=== PATIENT | female | born 2000 | race Caucasian/White ===

== ENCOUNTER 2024-11-23 08:44 | Emergency (ER) | payer BC, SELFPAY ==
[2024-11-23 08:51] VITALS: BP 103/74; PULSE 63; RESP 16; TEMP 36.1; O2SAT 100
--- NOTE | 2024-11-23 09:08 | ED.URI ---
HPI - URI/Sore Throat General Chief Complaint: Upper Respiratory Infection Stated Complaint: Sinus Time Seen by Provider: 11/23/24 09:08 Source: patient, RN notes reviewed and old records reviewed Mode of arrival: ambulatory Limitations: no limitations History of Present Illness HPI Narrative: 24-year-old female presents to the [facility] with complaints of sinus pressure x3 days, bilateral ear pressure worse on left than the right. Also has a sore inside the left cheek. Has taken 1 dose of ibuprofen and a dose of Mucinex. Denies any fevers. Onset (ago): day(s) (3) Treatments prior to arrival: cold medicine Related Data Home Medications ?Medication ?Instructions ?Recorded ?Confirmed ?Last Taken ?Type Control Pills 03/13/19 Unknown History Allergies Allergy/AdvReac Type Severity Reaction Status Date / Time No Known Allergies Allergy Mild Verified 11/23/24 08:56 Review of Systems Review of Systems: All systems reviewed & are unremarkable except as noted in HPI and below Constitutional: Constitutional: Reports no additional constitutional complaints ENT: Reports as per HPI Cardiovascular: Cardiovascular: Reports no additional cardiovascular complaints, Denies chest pain and Denies dyspnea Respiratory: Respiratory: Reports no additional respiratory complaints, Denies chest congestion, Denies cough and Denies dyspnea Musculoskeletal: Musculoskeletal: Reports no additional musculoskeletal complaints Integumentary/Breasts: Skin/Breast: Reports system reviewed and no additional complaints, except as docu PMFSH Comments At the time of my signature, I reviewed and agree with the nursing past medical, surgical, social, and family history. There is no relevant family history pertinent to the patient complaint. Exam Const: General: cooperative, healthy appearing, comfortable, no acute distress, well developed, alert and well nourished Nutritional Appearance: well nourished Orientation/consciousness: patient oriented x3 Limitations: no limitations HENMT: Head: normal to inspection Ears: hearing grossly normal bilaterally, external ears normal, TM's normal bilaterally, EAC's normal, mastoids normal and no periauricular adenopathy Mouth: Yes lip normal, Yes tongue normal, Yes moist mucous membranes and Yes other (Ulceration left cheek posterior) Throat: posterior oropharynx normal, uvula midline and no uvular edema Eyes: General: appearance normal, both eyes and all related structures Alignment and Position: alignment normal Neck: Neck: normal visual inspection, full ROM, no lymphadenopathy and no meningeal signs Chest: Chest palpation & inspection: normal inspection of the chest Resp: Effort & Inspection: normal respiratory effort and able to speak in complete sentences Auscultation: clear to auscultation bilaterally, no crackles, no rales, no rhonchi and no wheezes Cardio: Rate: regular rate Skin: General skin exam: normal color and no rashes or lesions noted Neuro: General: patient oriented x3, gait normal, moves all extremities and no meningeal signs Cognition (Neuro): normal cognition Speech: normal speech Gait exam (Neuro): Normal gait present Extrem: General: normal to inspection, full ROM, capillary refill normal and normal gait Psych: Appearance: grossly normal and well kempt Mental Status: mental status grossly normal Speech and movement: Normal speech and movement present and Clear speech present Affect: normal affect Attitude: cooperative Course Course Level of Care: Express Care Visit Vital Signs Vital signs: Vital Signs Temperature 97.0 F L 11/23/24 08:51 Pulse Rate 63 11/23/24 08:51 Respiratory Rate 16 11/23/24 08:51 Blood Pressure 103/74 11/23/24 08:51 Pulse Oximetry 100 11/23/24 08:51 Oxygen Delivery Room Air 11/23/24 08:51 Temperature 97.0 F L 11/23/24 08:51 Pulse Rate 63 11/23/24 08:51 Respiratory Rate 16 11/23/24 08:51 Blood Pressure 103/74 11/23/24 08:51 Pulse Oximetry 100 11/23/24 08:51 Oxygen Delivery Room Air 11/23/24 08:51 Reviewed MDM - URI/Sore Throat MDM Narrative Medical decision making narrative: Patient sitting comfortably in exam. Patient is nontoxic, vitals stable. Patient presents 3 day history of sinus pressure, ear pressure. Has not this ulcer to the left inside cheek posterior. No acute findings noted on exam. Patient is appropriate for outpatient treatment with close follow-up Discharge instructions reviewed with patient, as well as provided in writing per nursing staff. The instructions also include specific and strict return/GO TO THE ER as well as f/u information. All questions have been answered, and the patient deny any further questions with discharge and discharge plan. Some parts of this dictation were generated by voice recognition software and may contain typographical and/or grammatical inaccuracies. Differential Diagnosis Differential diagnosis: Likely upper respiratory infection, otitis media, sinusitis, viral infection, bronchitis, influenza and pharyngitis Critical Care Time Critical Care Time Critical Care Time: No Discharge Plan Discharge Clinical Impression: Aphthous ulcer of mouth Upper respiratory infection Qualifiers: URI type: unspecified viral URI Qualified Code(s): J06.9 - Acute upper respiratory infection, unspecified Sinusitis Qualifiers: Sinusitis location: pansinusitis Chronicity: acute Recurrence: not specified as recurrent Qualified Code(s): J01.40 - Acute pansinusitis, unspecified Patient Disposition: Home Condition: Stable Instructions: Sinusitis (ED), Viral Syndrome (ED) Additional Instructions: For the canker sore you can do saltwater gargles, apply sparingly the triamcinolone in orabase Your symptoms are likely due to a viral illness, which is not treated with antibiotics. Typically viral infections last 7-10 days, can linger for couple of weeks. It is very important to treat your symptoms. Drink plenty of water, Gatorade, Pedialyte, ice pops or Jell-O. -Alternate Tylenol and Motrin per package directions for fever or pain. You can alternate every 4 hours -Antihistamine medication such as Zyrtec/Claritin/Socorro during the day can help improve symptoms. -doing daily nasal irrigations can help relieve pressure your sinuses. Things like a Neti pot -Use Flonase twice a day for 5 days then daily to help reduce the inflammation and dry up your sinuses. -You can also use Mucinex. Be sure to drink plenty of water with this medication at least 8 ounces with every dose and it is important to drink 8 to 10 glasses of water per day. Water is a natural decongestant -if Mucinex isn't working you can try Sudafed. Be sure to drink minimum of 8 oz with every tablet -Eat and drink things that are easy to swallow, like tea or soup, or popsicles. -Oral rinses such as: Salt water gargles and/or may use topical anesthetic (eg. Chloraseptic spray) or lozenges to relieve dryness or throat pain). -Frequent hand washing or hand helpdesk specialist is one of the best ways to prevent spread of infection. -Using a vaporizer or humidifier at night will also help thin secretions and help with coughing up phlegm. -Follow up with primary care provider in 7-10 days if condition is not improving - For new or worsening symptoms go directly to the nearest ER Patient Language: Maltese Prescriptions: New triamcinolone acetonide 0.1 % paste 1 applic dental BID Qty: 5 0RF Rx Instructions: use after food and/or drink and/or oral hygiene fluticasone propionate [Flonase Allergy Relief] 50 mcg/actuation spray,suspension 2 spray intranasal DAILY Qty: 16 0RF Rx Instructions: administer into each nostril No Action Control Pills Follow-up/Referrals: PHYSICIAN,SOLAR SITE ASSESSMENT SPECIALIST [Primary Care Provider, Internal Medicine] Stand Alone Forms: Work/School Release IP Time of Disposition: 09:27
== END 2024-11-23 09:31 | disposition home or self-care (01) ==
PROVIDERS: Emergency Provider Nurse Practitioner
DX: K12.0 Recurrent oral aphthae (principal); J06.9 Acute upper respiratory infection, unspecified; J01.40 Acute pansinusitis, unspecified
CPT/HCPCS: 99213; G0463

== ENCOUNTER 2025-02-16 07:10 | Emergency (ER) | payer BC, SELFPAY ==
--- NOTE | ~2025-02-16 | CT_ITS ---
EXAMINATION: CT abdomen pelvis wo con, 02/16/2025 8:08 MILLING GENERAL SUPERINTENDENT HISTORY: L flank pain, hematuria/freq/dysuria COMPARISON: No comparisons available. TECHNIQUE: CT scan of the abdomen and pelvis was performed without IV contrast. One or more of the following dose reduction techniques were used: automated exposure control, adjustment of the mA and/or kV according to patient size, use of iterative reconstruction technique. Unless otherwise stated, incidental findings do not require dedicated follow up imaging FINDINGS: CT abdomen: LUNG BASES: The lung bases are clear. The visualized portions of the heart and pericardium are unremarkable. LIVER: Unremarkable, liver contours intact, no lesions. SPLEEN: Unremarkable, no splenomegaly. KIDNEYS: Right Kidney: Unremarkable. No calculi. No hydronephrosis. Left Kidney: Unremarkable. No calculi. No hydronephrosis ADRENAL GLANDS: Unremarkable. PANCREAS: Unremarkable. GALLBLADDER/BILIARY: Unremarkable. No biliary dilatation. STOMACH AND ESOPHAGUS: Visualized stomach and esophagus within normal limits. BOWEL/MESENTERY: Moderate fecal content, no colitis or diverticulitis. Appendix is prominent although there is no periappendiceal inflammation identified. Mesentery and small bowel are normal. ADENOPATHY/RETROPERITONEUM: No lymphadenopathy. AORTA/VASCULATURE: Normal caliber aorta. FREE FLUID OR FREE AIR: None. CT pelvis: SOLID ORGANS/REPRODUCTIVE: Unremarkable. BLADDER: Within normal limits. OSSEOUS STRUCTURES: No acute osseous abnormality.No suspicious lesions. OVERLYING SOFT TISSUES: Unremarkable. IMPRESSION: 1. No etiology identified to explain the patient's symptoms. Follow-up suggested if symptoms persist. Reviewed, dictated and finalized at location P. ING GENERAL SUPERINTENDENT IMPRESSION: 1. No etiology identified to explain the patient's symptoms. Follow-up suggeste d if symptoms persist.
--- OUTSIDE RECORDS SUMMARY | 2025-02-16 07:12 | XMS_ITS | Clinical Summary ---
Author Organization [facility] Address [address] [place] [id number] Phone Care Team Providers Care Program Advisor Name Role Phone Monika Smith MD Primary Care Provider Allergies No known active allergies Medications atomoxetine (STRATTERA) 40 mg capsule TAKE 1 CAPSULE BY MOUTH DAILY FOR 3 TO 5 DAYS. INCREASE TO 2 TIMES PER DAY 06/18/2023 Active spironolactone (ALDACTONE) 50 mg tabletIndicatio ns:Hirsutism Take 1 tablet (50 mg total) by mouth daily 90 tablet 09/12/2023 Active Active Problems Problem Noted Date Diagnosed Date PCOS (polycystic ovarian syndrome) 05/30/2021 Hirsutism 05/30/2021 Skin neoplasm 12/08/2012 Acne 10/28/2012 Skin benign neoplasm 10/28/2012 Medical History Medical History Date Comments Anxiety and depression Family History Medical History Relation Name Comments No Known Problems Father No Known Problems Mother Relation Name Status Comments Father Alive Mother Alive Social History Tobacco Use Types Packs/Day Years Used Date Smoking Tobacco: Never Smokeless Tobacco: Never Tobacco Cessation:Counseling Given: No AUDIT-C Answer Date Recorded Q1: How often do you have a drink containing alc ohol? Never 05/30/2021 Average Number of Drinks Not on file 022 Q3: How often do you have si x or more drinks on one occasion? 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 Gender Identity Not on file Sexual Orientation Not on file Obstetrics History Para Term AB IAB SAB Ectopic Multiple Livin g Live Births 0 0 0 0 0 0 0 0 0 0 0 Last Filed Vital Signs Vital Sign Reading Time Taken Comments Blood Pressure 108/72 07/26/2023 9:02 AM CDT Pulse - - Temperature - - Respiratory Rate - - Oxygen Saturation - - Inhaled Oxygen Concentration - - Weight 78 kg (172 lb) 07/26/2023 9:02 AM CDT Height 165.1 cm (5' 5) 07/26/2023 9:02 AM CDT Body Mass Index 28.62 07/26/2023 9:02 AM CDT Plan of Treatment Health Maintenance Due Date Last Done Comments Cervical Cancer Screening 2000 Chlamydia and Gonorrhea (GC/ CT) Screening 2000 Depression Screening 2000 Hepatitis C Screening 2000 Regular Well Visit/Exam 18-64 2018 DTaP/Tdap/Td Vaccine (7 - Td or Tdap) 09/21/2021 09/22/2011, 11/02/2005, 12/02/2001, Additional history exists Covid-19 Vaccine (3 2024-2 6 season) 2024 08/17/2020, 06/21/2020 Influenza Vaccine (#1) 2024 12/11/2020 Hepatitis B Screening Completed 03/05/2001 , 2000, 2000 Pneumococcal vaccine <65 Completed 002, 03/05/2001, 01/13/2001, Additional history exists Varicella Vaccines Completed 10/02/2011, 2001 HPV Vaccines Completed 11/16/2014, 10/13/2012 Insurance [employer] GENERIC BL CHOICE [place]F [place]PO [place] Care Teams Program Advisor Relationship Specialty Start Date End Date Monika Smith MD PCP - General Family Medicine 07/14/19
[2025-02-16 07:29] VITALS: BP 113/68; PULSE 93; RESP 16; TEMP 36.6; O2SAT 100
[2025-02-16 07:59] LABS: BEDSIDEPREGUCG Negative (Negative)
--- OUTSIDE RECORDS SUMMARY | 2025-02-16 08:06 | XMS_ITS | Clinical Summary ---
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
--- OUTSIDE RECORDS SUMMARY | 2025-02-16 08:06 | XMS_ITS | Clinical Summary ---
Author Organization [facility] [employer] Address [address] [place] [address] Care Team Providers Care Skein Yarn Dyer Name Role Phone Machelle Stephens MD Primary Care Provider [phone] Source Comments [facility],non-owned Affiliates and Associated Physician Practices is amultiple site organization consisting of ambulatory clinics and hospital sitesin [place], [place], [place] and [place]. This disclosure is being madepursuant to the Care Everywhere program and may not contain all information available regarding this patient. Last updated 17.[facility] [employer] Allergies No known active allergies Medications * Be aware that medications may not be up to date on this document. Alwaysverify current medications with the patient. azithromycin (ZITHROMAX) 250 MG tabletIndication s:Acute sinusitis, recurrence not specified, unspecified location Take 2 tabs today, then 1 tab daily for next 4 days 6 tablet 09/23/2020 Active albuterol HFA (PROVENTIL;ANALILIA LIZY;PROAIR) 108 (90 Base) MCG/ACT inhalerIndicatio ns:Acute bronchitis, unspecified organism Inhale 2 (two) puffs by mouth every 6 hours as needed 1 Inhaler 09/23/2020 Active drospirenone-eth inyl estradiol (GIANVI) 3-0.02 MG tablet Take 1 (one) tablet by mouth once daily 28 tablet 12 09/26/2020 Active Active Problems Problem Noted Date Diagnosed Date Toe fracture 09/07/2014 Immunizations Immunization Administration Dates Next Due MENINGOCOCCAL ACWY (MCV4P) VAC IM 12/14/2017 Family History Medical History Relation Name Comments Depression Father Depression Paternal Aunt Relation Name Status Comments Father Paternal Aunt Social History Tobacco Use Types Packs/Day Years Used Date Smoking Tobacco: Some Days Smokeless Tobacco: Never Alcohol Use Standard Drinks/Week Comments No 0 (1 standard drink = 0.6 oz pur e alcohol) Comments No Sex and Gender Information Value Date Recorded Sex Assigned at Not on file Legal Sex Female 9:32 AM CDT Gender Identity Not on file Sexual Orientation Not on file Last Filed Vital Signs Vital Sign Reading Time Taken Comments Blood Pressure 124/84 09/26/2020 4:13 PM CDT Pulse 102 09/23/2020 12:51 PM CDT Temperature 36.9 C (98.4 F) 09/23/2020 12:51 PM CDT Respiratory Rate 17 09/23/2020 12:51 PM CDT Oxygen Saturation 98% 09/23/2020 12:51 PM CDT Inhaled Oxygen Concentration - - Weight 101.6 kg (224 lb) 09/26/2020 4:13 PM CDT Height 165.1 cm (5' 5) 09/26/2020 4:13 PM CDT Body Mass Index 37.28 09/26/2020 4:13 PM CDT Plan of Treatment Health Maintenance Due Date Last Done Comments HIV SCREENING 09/03/2015 HPV VACCINE (1 - 3-dose series) 09/03/2015 HEPATITIS C SCREENING 08/29/2018 DTAP/TDAP/TD VACCINES (1 - Tdap) 09/03/2019 HEPATITIS B VACCINE (1 of 3 - 19+ 3-dose series) 09/03/2019 PNEUMOCOCCAL VACCINE (1 of 2 - PCV) 09/03/2019 PAP SMEAR 2021 CHLAMYDIA/GONORRHEA SCREENING 09/26/2021, 09/24/2018 DEPRESSION SCREENING 03/18/2024 COVID-19 VACCINE (3 - 2024-2 6 season) 2024 08/17/2020, 06/21/2020 INFLUENZA VACCINE (#1) 2024 ZOSTER VACCINE (1 of 2) 2050 MENINGOCOCCAL GROUPS A/C/Y/W VACCINE Completed 12/14/2017 HIB VACCINE Aged Out No longer eligi ble based on patient's age to complete this topic MENINGOCOCCAL (Group B) VACCINE SHARED DECISION-MAKING Aged Out No longer eligible based on patient's age to complete this topic Procedures Procedure Name Priority Date/Time Associated Diagnosis Comments C. TRACHOMATIS + N. GONORRHOEAE OXANA Routine 09/26/2020 4:34 PM CDT Screen for STD (sexually transmitted disease) from Last 3 Months or Most Recently Relevant to Health Maintenance Results * C. TRACHOMATIS + N. GONORRHOEAE OXANA (09/26/2020 4:34 PM CDT) Chlamydia Trachomatis OXANA Not detected Not detected 09/28/2020 9:56 AM CDT [facility] Neisseria Gonorrhoeae OXANA Not detected Not detected 09/28/2020 9:56 AM CDT [facility] Microbiology URINE / Unknown 09/26/2020 4 :34 PM CDT 09/27/2020 12:20 PM CDT Narrative [facility] - 09/28/2020 9:56 AM CDT This analysis was performed using Gen-Probe Aptima Combo 2. This methodology is U.S. FDA approved for Chlamydia trachomatis and Neisseria gonorrhoeae testing for urine and urogenital swabs from men and women, and cervical cells submitted in ThinPrep vials. Performance characteristics for rectal and pharyngeal swabs were determined by the [facility] at [facility]. Testing by Gen-Probe Aptima Combo 2 on these sample types has not been cleared or approved by the U.S. FDA. The FDA has determined that such clearance approval is not necessary. This test is used for clinical purposes and should not be regarded as investigational or for research. This laboratory is certified under the Clinical Laboratory Improvements Amendments of 1988 (CLIA 1988), as qualified to perform high complexity laboratory testing. Alexia Escalante MD LAB - MICROBIOLOGY ORDERABLES F inal Result [facility] [address] [place] [address], [facility] [phone] from Last 3 Months or Most Recently Relevant to Health Maintenance Insurance COMMERCIAL GENERIC Care Teams Skein Yarn Dyer Relationship Specialty Start Date End Date Machelle Stephens MD PCP - General Pediatrics 09/07/14
--- NOTE | 2025-02-16 08:28 | ED_ITS ---
HPI - Female Genitourinary General Chief complaint: Urogenital-Female Stated complaint: uti, flank pain Time Seen by Provider: 02/16/25 07:49 History of Present Illness HPI Narrative: Patient was recently diagnosed with a UTI, given Macrobid which she finished, had felt better, then 2 days ago started having symptoms again, with significant dysuria, now she has pain to her left flank. Related Data Home Medications ?Medication ?Instructions ?Recorded ?Confirmed ?Last Taken ?Type Control Pills 03/13/19 Unknown History Allergies Allergy/AdvReac Type Severity Reaction Status Date / Time No Known Allergies Allergy Mild Verified 02/16/25 07:50 Review of Systems Review of Systems: All systems reviewed & are unremarkable except as noted in HPI and below Exam Narrative: EXAMINATION OF ORGAN SYSTEMS/BODY AREAS: Constitutional: Vital signs per nursing GENERAL:[No acute distress, non-toxic appearing.] HEAD: Normal with no signs of head trauma. EYES: EOMI, conjunctiva normal ENT: Hearing grossly intact LUNGS: Nonlabored breathing. HEART: [Regular rate and rhythm] ABD: [Soft], tenderness to palpation left flank EXT: Normal range of motion SKIN: [No rashes or lesions.] NEURO: [Alert and oriented x 3. No gross focal sensory or strength deficits.] PSYCH: Normal affect Course Vital Signs Vital signs: Vital Signs Temperature 97.8 F 02/16/25 07:29 Pulse Rate 93 02/16/25 07:29 Respiratory Rate 16 02/16/25 07:29 Blood Pressure 113/68 02/16/25 07:29 Pulse Oximetry 100 02/16/25 07:29 Temperature 97.8 F 02/16/25 07:29 Pulse Rate 93 02/16/25 07:29 Respiratory Rate 16 02/16/25 07:29 Blood Pressure 113/68 02/16/25 07:29 Pulse Oximetry 100 02/16/25 07:29 [facility] MDM Narrative Medical decision making narrative: 24 year-old patient presenting with flank pain and urinary symptoms concerning for pyelonephritis versus kidney stone, the antibiotics she took for UTI with Macrobid which would not have treated pyelonephritis. Urinalysis is obtained and positive for signs of infection. Urine culture sent. [ test is negative.] CT abdomen/pelvis without acute abnormality. Patient started on ceftriaxone here, Bactrim sent to her pharmacy in [place] where she is flying in 2 hours, and she strongly advised to go to the ER for any increasing or worsening pain, fevers or vomiting. They expressed understanding of instructions and is discharged in stable condition. Differential Diagnosis Differential Diagnosis: UTI, kidney stone, pyelonephritis Lab Data Labs: Lab Results 02/16/25 02/16/25 Range/Units 07:52 07:57 Urine Color Dark yellow (Yellow) Urine Appearance Turbid H (Clear) Urine pH 5.0 (5.0-9.0) Ur Specific [place] 1.026 (1.001-1.035) Urine Protein 2+ H (Negative) mg/dL Urine Glucose (UA) Negative (Negative) mg/dL Urine Ketones Trace H (Negative) mg/dL Ur Blood (Man) 3+ H (Negative) Urine Nitrate Negative (Negative) Urine Bilirubin Negative (Negative) Urine Urobilinogen 1.0 (<2.0) mg/dL Add Ur Microanalysis Reviewed Leukocyte Esterase Rfl 2+ H (Negative) JASWINDER/UL Urine RBC >100 H (0-2) /hpf Urine WBC >100 H (0-3) /hpf Ur Squamous Epith Cells None seen (Few) /hpf Urine Bacteria None seen /hpf Urine Casts 0-2 Urine Mucus Present /lpf POC Urine HCG, Qual Negative (Negative) Imaging Data Radiologist's impression: ITS Impressions Abdomen/Pelvis CT 02/16/25 08:20 IMPRESSION: 1. No etiology identified to explain the patient's symptoms. Follow-up suggested if symptoms persist. Discharge Plan Discharge Clinical Impression: Pyelonephritis Patient Disposition: Home Condition: Stable Instructions: Antibiotic Form, Kidney Infection (ED) Additional Instructions: Please make sure to take the antibiotics as prescribed. If you start developing worsening pain, fevers or chills, if you can not keep anything down or anything else concerning, please return to the emergency room. Patient Language: Romanian Prescriptions: New sulfamethoxazole-trimethoprim [Bactrim DS] 800-160 mg tablet 1 tablet PO Q12H Qty: 14 0RF sulfamethoxazole-trimethoprim [Bactrim DS] 800-160 mg tablet 1 tablet PO Q12H Qty: 14 0RF No Action Control Pills triamcinolone acetonide 0.1 % paste 1 applic dental BID Qty: 5 0RF Rx Instructions: use after food and/or drink and/or oral hygiene fluticasone propionate [Flonase Allergy Relief] 50 mcg/actuation spray,suspension 2 spray intranasal DAILY Qty: 16 0RF Rx Instructions: administer into each nostril Follow-up/Referrals: PHYSICIAN,GEAR CUTTING MACHINE OPERATOR [Primary Care Provider, Internal Medicine]
[2025-02-16 08:39] LABS: Add Urine Microscopic? YES; Appearance Urine Turbid (Clear); Glucose Urine UA Negative (Negative); Leukocyte Esterase Ur 2+ LEU/UL (Negative); Need Manual Microscopic Reviewed; Nitrate Urine Negative (Negative); Non Pathogenic Casts 0-2; Specific Grav Ur 1.026 (1.001-1.035)
[2025-02-16] MEDS: cefTRIAXone 1 GM, LIDOCAINE 1% LOCAL INJ 2.1 ML IM (09:19)
== END 2025-02-16 09:26 | disposition home or self-care (01) ==
PROVIDERS: Emergency Provider Emergency Medicine
DX: N12 Tubulo-interstitial nephritis, not specified as acute or chronic (principal)
CPT/HCPCS: 74176; 81001; 81025; 87086; 96372; 99284; J0696; J2003